=== PATIENT | female | born 1945 | race Caucasian/White ===

== ENCOUNTER → 2016-11-28 | Outpatient (CLI) | payer OTHER ==
[~2016-11-28] MED LIST: ERGO1CAP35 PO; HYDC25 PO; MELO15TA3 PO; METO1TAB69 PO; METO50TA7 PO; MULT-506 PO; OMEG10007 PO; OTC STOOL SOFTENER PO; POTA10CA28 PO; PRCSR90 PO; PSYL55.43 PO; ZNTT/150 PO
--- NOTE | 2016-11-28 11:54 | DIAGNOSTIC IMAGING REPORT ---
MRCP HISTORY: Dilated common bile duct. ABNORMAL FINDINGS ON GI TRACT TECHNIQUE: MRCP of the abdomen was performed according to standard departmental protocol without the use of intravenous contrast. COMPARISON STUDY: Abdominal ultrasound 10/14/2016. FINDINGS: There are least 3 cysts within the liver with the largest at the right hepatic dome measuring 12 cm. These remain unchanged. The kidneys, adrenal glands, and spleen are unremarkable. There is a 5 mm cyst at the pancreatic tail. No retroperitoneal lymphadenopathy. The gallbladder surgically absent. The common bile duct is normal in caliber measuring up to 5 mm. There is a distended common hepatic duct and cystic duct. These measure 15 mm and 9 mm, respectively. There is also left greater the right mild to moderate intrahepatic bile duct dilatation. No filling defects within the common bile duct. There is a pancreas divisum. The main pancreatic duct is mildly distended up to 4 mm. IMPRESSION: 1. Normal caliber common bile duct measuring 5 mm. 2. Distended common hepatic duct and cystic duct status post cholecystectomy. There is also mild to moderate intrahepatic bile duct dilatation, left greater than right. There are no filling defects within the common bile duct or common hepatic duct. Therefore, these may represent postoperative changes. 3. Pancreas divisum. The main pancreatic duct is mildly distended up to 4 mm. 4. A 5 mm cyst at the pancreatic tail. 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 5. Hepatic cysts. Electronically signed by: Tomy Musa M.D. 11/28/2016 11:52 AM Dictated Date/Time: 11/28/2016 11:39 AM
== END | disposition home or self-care (01) ==
LOC: C.MRI 10:35
PROVIDERS: ATTEND Internal Medicine Gastroenterology
DX: R93.3 Abnormal findings on diagnostic imaging of other parts of digestive tract (principal); K86.2 Cyst of pancreas; K76.89 Other specified diseases of liver

== ENCOUNTER → 2017-08-28 | Outpatient (CLI) | payer OTHER | END | disposition home or self-care (01) | LOC: C.MAMM 15:34 | PROVIDERS: ATTEND Family Medicine | DX: M85.851 Other specified disorders of bone density and structure, right thigh (principal); M85.852 Other specified disorders of bone density and structure, left thigh ==

== ENCOUNTER → 2018-06-29 | Outpatient (CLI) | payer OTHER ==
[~2018-06-29] MED LIST changes: +METO100T44 PO; -METO1TAB69 PO; -METO50TA7 PO; +METO50TA8 PO; +RANI150T85 PO; -ZNTT/150 PO
--- NOTE | 2018-06-29 16:01 | DIAGNOSTIC IMAGING REPORT ---
MRCP CLINICAL HISTORY: Right upper quadrant abdominal pain. COMPARISON STUDY: MRCP November 28, 2016 and right upper quadrant ultrasound May 06, 2018. TECHNIQUE: Utilizing a 1.5 Hannah magnet and dedicated coil, multiplanar, multiecho imaging of the upper abdomen was performed without intravenous contrast. FINDINGS: Several hepatic cysts are noted. The dominant right hepatic lobe cyst has increased in size since exam of November 28, 2016. This cyst now measures 14.6 x 10.9 x 10.4 cm. It previously measured 12.1 x 9.4 x 8.7 cm. A few small hepatic cysts are noted. There is trace perihepatic fluid. Caliber of the common bile duct is normal. Dilatation of the common hepatic duct and the cystic duct is unchanged since MRCP of April 28, 2017. Common hepatic duct measures 1.5 cm. Cystic duct measures 0.9 cm. There is no filling defect to suggest choledocholithiasis. Mild intrahepatic biliary ductal dilatation is also unchanged. Pancreas divisum is noted. Mild dilatation of the main pancreatic duct is unchanged. No peripancreatic infiltration or fluid. A 6 mm cystic lesion within the pancreatic tail is unchanged. This likely reflects a small side branch IPMN. Unenhanced images of the spleen and adrenal glands are normal. There is no abdominal lymphadenopathy. A moderate-sized hilar hernia is noted. IMPRESSION: 1. Increase in size of a dominant right hepatic lobe cyst which now measures 14.6 x 10.9 x 10.4 cm. Trace perihepatic fluid. 2. No change in biliary ductal dilatation since MRCP of November 28, 2016. This is likely related to previous cholecystectomy. No choledocholithiasis. 3. Pancreas divisum. No change in mild pancreatic ductal dilatation. 4. Moderate sized hiatal hernia. Electronically signed by: Kashmir De Luna M.D. 06/29/2018 3:59 PM Dictated Date/Time: 06/29/2018 3:48 PM
== END | disposition home or self-care (01) ==
LOC: C.MRI 14:47
PROVIDERS: ATTEND Internal Medicine Gastroenterology
DX: R10.11 Right upper quadrant pain (principal)

== ENCOUNTER 2021-09-27 05:25 | Observation (INO) ==
--- NOTE | 2021-07-25 16:51 | History & Physical Report ---
Date of Service July 25, 2021 Assessment & Plan (1) Left knee DJD: Plan: Postoperative prescriptions for Percocet and Coumadin will be provided at discharge from the hospital. Anticipate discharge to home with home health services. She already has access to a walker and cane. She has an appointment to see her PCP early next week for medical clearance. Informed written consent will be obtained on the morning of surgery. The patient is aware of the COVID-1 9 risks associated with surgery. She is currently asymptomatic of any COVID-19 symptoms. COVID-19 nasal swab testing was ordered for the Friday prior to surgery. PDMP was checked and there are no concerning findings. She has an appointment with PAT on July 26. Preoperative lab work, EKG, and chest x- ray have been ordered. History of Present Illness Chief Complaint: Left knee pain Primary Care Provider: Gabrielle Guerrero DO This 76-year-old female presents for her preoperative history and physical. She is scheduled to undergo a left knee total knee arthroplasty on 08/01/2021. The patient has had a longstanding history of left knee pain. It has been ongoing for years. It has become worse over the last 2 years. She states she intended to have her knee replaced 2 years ago, but postponed it due to the pandemic. She is now ready to proceed. She has pain with activities of daily living. There is pain with weightbearing. She does have occasional night pain. She denies any effusions. She has an overall thickening of the knee as well as valgus deformity. She has tried conservative care measures for the last several years without lasting improvement. No true numbness. She does have some baseline altered sensation due to back issues. She has chronic weakness in the left lower limb along with diminished ankle reflexes since 1976. Preoperative imaging has been obtained. She elects to proceed with surgical intervention in hopes of improving her pain control and alignment. Allergies Allergy/AdvReac Type Severity Reaction Status Date / Time lisinopril Allergy Intermediate Cough Verified 07/25/21 07:34 codeine Allergy Mild Gastrointestinal Verified 07/25/21 07:34 Upset Penicillins AdvReac Intermediate Hives Verified 07/25/21 07:34 Home Medications Medication Instructions Recorded Confirmed Type aspirin 81 mg tablet 81 mg PO HS tab 05/29/20 07/25/21 History cholecalciferol (vitamin D3) 25 1,000 unit PO QAM 05/29/20 07/25/21 History mcg (1,000 unit) tablet cyanocobalamin (vitamin B-12) 500 500 mcg PO QAM 05/29/20 07/25/21 History mcg tablet melatonin 10 mg tablet,extended 10 mg PO HS tab 05/29/20 07/25/21 History release,multiphase metoprolol succinate 100 mg 100 mg PO HS tab 05/29/20 07/25/21 History tablet,extended release 24 hr metoprolol succinate 50 mg 50 mg PO QAM tab 05/29/20 07/25/21 History tablet,extended release 24 hr nifedipine 90 mg tablet,extended 90 mg PO HS tab 05/29/20 07/25/21 History release omeprazole 40 mg capsule,delayed 40 mg PO HS cap 05/29/20 07/25/21 History release potassium chloride 10 mEq 10 meq PO BID tab 05/29/20 07/25/21 History tablet,extended release chlorthalidone 25 mg tablet 25 mg PO QAM 05/31/20 07/25/21 History docusate sodium 100 mg tablet 200 mg PO HS tab 05/31/20 07/25/21 History (Stool Softener) acetaminophen 500 mg tablet 1,000 mg PO HS 11/03/20 07/25/21 History meloxicam 7.5 mg tablet 7.5 mg PO DAILY PRN 11/03/20 07/25/21 History olmesartan 5 mg tablet 5 mg PO HS 11/28/20 07/25/21 History memantine 10 mg tablet 10 mg PO BID #180 tab 05/02/21 07/25/21 Rx Past Med/Surg History Medical History (Updated 07/25/21 @ 16:50 by Deo Morales PA-C) GERD (gastroesophageal reflux disease) History of esophageal dilatation History of migraine Hypertension Mild cognitive impairment Obesity Osteoarthritis Overactive bladder Renal cyst, acquired BEING MONITORED BY PCP Katie's ring Vascular dementia FOLLOWS WITH DR. DEVINE Surgical History H/O dilation and curettage History of back surgery per pt "removed part of the lumbar fusion" History of cataract surgery RT/LEFT History of colonoscopy History of esophagogastroduodenoscopy (EGD) History of hysterectomy History of lumbar fusion History of right inguinal hernia repair History of tooth extraction History of total left hip replacement History of total right knee replacement (TKR) Nausea and vomiting after administration of anesthetic agent S/P cholecystectomy S/P tonsillectomy and adenoidectomy Status post Mohs surgery for basal cell carcinoma ON SCALP Status post tubal ligation Family History (Updated 07/25/21 @ 16:46 by Deo Morales PA-C) Mother Hypertension Sister Pancreatic cancer Hypertension Father Lung cancer Other Melanoma No family history of adverse response to anesthesia Social History (Updated 07/25/21 @ 16:45 by Deo Morales PA-C) Smoking Status: Never smoker Second Hand Exposure: Yes ( A CHILD); Hx Alcohol Use: Yes (formerly) Alcohol type: hard liquor Preferred Language: Albanian Communication Ability: Effective World Language Teacher Required: No Beliefs That Will Affect Care: None marital status: Current Living Situation: Spouse current occupational status: retired Feels Safe at Home: Yes Assistive Devices: Cane and Glasses Review of Systems Review of Systems: All systems reviewed & are unremarkable except as noted in HPI & below A total of 10 systems were reviewed. Physical Exam Physical Exam: Vitals: Height 157 cm, weight 79 kilograms, BMI 32.0, temperature 36.5, BP 110/60, pulse 67, and O2 sat 96% on room air. General: Well-developed, well-nourished, elderly white female in no acute distress. Sitting in a chair. Alert and oriented. Skin: Warm and dry with good turgor. No rashes or lesions. No intraarticular effusion. She does have some venous stasis changes on her lower extremities. She also has varicosities present in both lower legs. HEENT: Normocephalic, atraumatic. Eyes: PERRLA, EOMI. Nares and oropharynx exams deferred due to COVID precautions. Heart: RRR, no MGR. Lungs: Clear to auscultation bilaterally. No crackles, rhonchi or wheezing. Good air movement. Abdomen: Mildly obese. Bowel sounds present x4. Soft, nontender. No organomegaly. No masses. Musculoskeletal: Left knee evaluation reveals an obvious valgus deformity. There is some thickening about the knee, but no intraarticular effusion. No redness or warmth. She lacks a few degrees of terminal extension. Flexion to about 110 degrees. Strength is 5/5 with fair quad tone. Stable collateral ligaments. Some slight pseudolaxity of the LCL. No defect in the patellar tendon or quadriceps tendon. She has focal discomfort with palpation over the lateral joint line. There is also some medial joint line discomfort with palpation today, though it is minor compared to the lateral compartment. There is crepitus palpable with motion. Ambulating today with an antalgic gait. Neurologic: Gross sensation is intact across the left leg by soft touch. Peripheral pulses are 2+. She is noted to have a decreased Achilles reflex on the left. Results & Data Results & Data ([facility]) Diagnostic Findings Radiographic imaging previously obtained shows end-stage DJD with valgus deformity of the left knee. Periarticular osteophytes, subchondral sclerosis, and joint space narrowing are all present. Code Status & VTE Plan VTE Prophylaxis Plan VTE Prophylaxis will be ordered: Yes
--- NOTE | 2021-07-26 10:16 | PAT Medication Instructions ---
Medication Instructions Date of Service July 26, 2021 Home Medications Medication Instructions Recorded memantine 10 mg tablet 10 mg PO BID #180 tab 05/02/21 aspirin 81 mg tablet 81 mg PO HS cholecalciferol (vitamin D3) 25 mcg (1,000 unit) tablet 1,000 unit PO QAM cyanocobalamin (vitamin B-12) 500 mcg tablet 500 mcg PO QAM melatonin 10 mg tablet,extended release,multiphase 10 mg PO HS metoprolol succinate 100 mg tablet,extended release 24 hr 100 mg PO HS metoprolol succinate 50 mg tablet,extended release 24 hr 50 mg PO QAM nifedipine 90 mg tablet,extended release 90 mg PO HS omeprazole 40 mg capsule,delayed release 40 mg PO HS potassium chloride 10 mEq tablet,extended release 10 meq PO BID chlorthalidone 25 mg tablet 25 mg PO QAM docusate sodium 100 mg tablet (Stool Softener) 200 mg PO HS acetaminophen 500 mg tablet 1,000 mg PO HS meloxicam 7.5 mg tablet 7.5 mg PO DAILY PRN olmesartan 5 mg tablet 5 mg PO HS memantine 10 mg tablet 10 mg PO BID ASK your surgeon for instructions meloxicam 7.5 mg tablet 7.5 mg PO DAILY PRN DO NOT take the morning of surgery cholecalciferol (vitamin D3) 25 mcg (1,000 unit) tablet 1,000 unit PO QAM cyanocobalamin (vitamin B-12) 500 mcg tablet 500 mcg PO QAM potassium chloride 10 mEq tablet,extended release 10 meq PO BID chlorthalidone 25 mg tablet 25 mg PO QAM Take morning of surgery With a small sip of water, OTHERWISE NOTHING TO EAT OR DRINK AFTER MIDNIGHT: metoprolol succinate 50 mg tablet,extended release 24 hr 50 mg PO QAM memantine 10 mg tablet 10 mg PO BID Take evening before surgery aspirin 81 mg tablet 81 mg PO HS (continue as normal unless told otherwise by surgeon) melatonin 10 mg tablet,extended release,multiphase 10 mg PO HS metoprolol succinate 100 mg tablet,extended release 24 hr 100 mg PO HS nifedipine 90 mg tablet,extended release 90 mg PO HS omeprazole 40 mg capsule,delayed release 40 mg PO HS potassium chloride 10 mEq tablet,extended release 10 meq PO BID docusate sodium 100 mg tablet (Stool Softener) 200 mg PO HS acetaminophen 500 mg tablet 1,000 mg PO HS olmesartan 5 mg tablet 5 mg PO HS memantine 10 mg tablet 10 mg PO BID Other Notes If you have any questions please call us at [phone] or [phone] or [phone] or [phone]
--- NOTE | 2021-07-26 10:43 | Anesthesiology Consultation ---
Date of Service July 26, 2021 Assessment & Plan (1) Encounter for pre-operative examination: - COVID screening: Per assessment on 07/26: Travel screen negative, no known COVID-19 positive contacts or current COVID-19 related symptoms. Patient vacci nated. Surgeon arranging preop COVID testing. Awaiting results. - Neurology office visit (05/02/21): "Patient has mild cognitive impairment. She is functioning very well and I see no evidence for significant dementia (such as a senile dementia of the Alzheimer's type). Given her chronic cerebral ischemia, I suspect she has a mild vascular dementia, which is stable. Memantine can help and she tolerates this." F/U as needed recommended. - PCP office visit (07/24/21): "Risk calc 2.4% for any complications.. lower than average.. benefit > risk.. proceed with TLK-- however need pre-op blood work and EKG before final decision done" > Preop labs, EKG and CXR done 07/26/21 and unremarkable. Results to be forwarded to PCP. Chart Review Chart Review: Acceptable Risk for Surgery (pending final PCP clearance) and Patient seen in Pre Admission Testing Teaching & Discussion Pre-Anesthesia Teaching/Discussion Notes: Instructed NPO after midnight before surgery,except medications with 15 cc of water. Medication instructions provided according to the PAT guidelines. History Surgery Operation Date: 08/01/21 08:50 Proposed Procedures p Left Total Knee Arthroplasty - Jb Patel MD Height/Weight Height: 5 ft 2 in Weight: 79.8 kg Allergies Allergy/AdvReac Type Severity Reaction Status Date / Time lisinopril Allergy Intermediate Cough Verified 07/25/21 07:34 codeine Allergy Mild Gastrointestinal Verified 07/25/21 07:34 Upset Penicillins AdvReac Intermediate Hives Verified 07/25/21 07:34 Medications Home Medications Medication Instructions Recorded Confirmed Last Taken aspirin 81 mg tablet 81 mg PO HS tab 05/29/20 07/25/21 11/27/20 cholecalciferol (vitamin D3) 25 1,000 unit PO QAM 05/29/20 07/25/21 11/27/20 mcg (1,000 unit) tablet cyanocobalamin (vitamin B-12) 500 500 mcg PO QAM 05/29/20 07/25/21 11/27/20 mcg tablet melatonin 10 mg tablet,extended 10 mg PO HS tab 05/29/20 07/25/21 11/27/20 release,multiphase metoprolol succinate 100 mg 100 mg PO HS tab 05/29/20 07/25/21 11/27/20 tablet,extended release 24 hr metoprolol succinate 50 mg 50 mg PO QAM tab 05/29/20 07/25/21 12/12/20 06:30 tablet,extended release 24 hr nifedipine 90 mg tablet,extended 90 mg PO HS tab 05/29/20 07/25/21 11/27/20 release omeprazole 40 mg capsule,delayed 40 mg PO HS cap 05/29/20 07/25/21 11/27/20 release potassium chloride 10 mEq 10 meq PO BID tab 05/29/20 07/25/21 11/27/20 tablet,extended release chlorthalidone 25 mg tablet 25 mg PO QAM 05/31/20 07/25/21 11/27/20 docusate sodium 100 mg tablet 200 mg PO HS tab 05/31/20 07/25/21 11/27/20 (Stool Softener) acetaminophen 500 mg tablet 1,000 mg PO HS 11/03/20 07/25/21 11/27/20 meloxicam 7.5 mg tablet 7.5 mg PO DAILY PRN 11/03/20 07/25/21 Unknown olmesartan 5 mg tablet 5 mg PO HS 11/28/20 07/25/21 11/27/20 memantine 10 mg tablet 10 mg PO BID #180 tab 05/02/21 07/25/21 Unknown Past Medical History Medical History Chronic cerebral ischemia GERD (gastroesophageal reflux disease) controlled History of blood transfusion post-op x2 History of migraine Hypertension Mild cognitive impairment Obesity Osteoarthritis Overactive bladder Renal cyst, acquired Under surveillance by PCP Katie's ring Vascular dementia Follows with neurology (Dr. Beasley) Exercise / Class Metabolic Activity II 4-5 Yardwork/Stairs/Walk up hill Past Family History Family History Mother Hypertension Sister Pancreatic cancer Hypertension Father Lung cancer Other Melanoma No family history of adverse response to anesthesia Past Surgical History Surgical History H/O dilation and curettage History of back surgery Lumbar fusion revision History of cataract surgery R/L History of colonoscopy History of esophageal dilatation History of esophagogastroduodenoscopy (EGD) History of hysterectomy History of lumbar fusion History of right inguinal hernia repair History of tooth extraction History of total left hip replacement History of total right knee replacement (TKR) S/P cholecystectomy S/P tonsillectomy and adenoidectomy Status post Mohs surgery for basal cell carcinoma Scalp Status post tubal ligation Past Anesthesia History No Family Hx of Anesthesia Complications and Other Hx of ~L4-S1 fusion. Patient reports that difficulty with spinal placement for remote either ONDINA or TKA. She states spinal was eventually successful and surgery/anesthesia otherwise unremarkable. History of PONV No Hx of Motion Sickness and History of PONV Social History Smoking Status: Never smoker Do You Dip or Chew Tobacco: No Hx Alcohol Use: Yes (formerly) Alcohol type: hard liquor alcohol intake frequency: 0-2 drinks per day (Typically one drink/day) Hx Substance Use: No substance use type: does not use Review of Systems Patient denies chest pain, shortness of breath, dyspnea on exertion, fever, chills, cough, wheezing, palpitations. Physical Exam Vital Signs VITALS BP 120/74 P 61 TEMP 98.4 SP02 94%RA RESP 16 PHYSICAL Full cervical extension range of motion. Full TMJ range of motion. TMD 3 finger breaths Mallampati Score 3 Dentition: intact, crowns/bridges (upper front crowns) Lungs: clear throughout to auscultation Cardiac: regular rate and rhythm, no murmurs noted Spine: normal Carotid arteries: negative bruit Extremities: no edema Lab Results Anesthesia Preop Results Results Anesthesia Widget: WBC 5.09 K/uL (4.8-10.8) 07/26/21 Hgb 13.0 g/dL (12.0-16.0) 07/26/21 Hct 38.9 % (37-47) 07/26/21 Plt 253 K/uL (130-400) 07/26/21 Na 137 mmol/L (136-145) 07/26/21 K 3.5 mmol/L (3.5-5.1) 07/26/21 Cl 103 mmol/L (98-107) 07/26/21 CO2 28 mmol/L (21-32) 07/26/21 BUN 11 mg/dl (7-18) 07/26/21 Creat 0.98 mg/dl (0.6-1.2) 07/26/21 Glucose Level 94 mg/dl (70-99) 07/26/21 PT 9.9 Seconds (9.0-12.0) 07/26/21 PTT 26.0 Seconds (21.0-31.0) 07/26/21 INR 1.0 (0.9-1.1) 07/26/21 Urine Color Yellow 07/26/21 Urine Appearance Clear (Clear) 07/26/21 Urine pH 8.0 (4.5-7.5) H 07/26/21 Urine Specific [place] 1.013 (1.000-1.030) 07/26/21 Urine Protein Negative (Negative) 07/26/21 Urine Glucose (UA) Negative (Negative) 07/26/21 Urine Ketones Negative (Negative) 07/26/21 Urine Blood Negative (Negative) 07/26/21 Urine Nitrite Negative (Negative) 07/26/21 Urine Bilirubin Negative (Negative) 07/26/21 Urine Urobilinogen Negative (Negative) 07/26/21 Urine Leukocyte Esterase Negative (Negative) 07/26/21 Blood Type O Positive 07/26/21 Antibody Screen NEGATIVE 07/26/21 Testing Electrocardiogram Date: 07/26/21 NSR at 62bpm. Moderate voltage criteria for LVH, may be normal variant. TWI isolated in lead III. Flattened/NS TWA in AVF. Chest X-Ray Date: 07/26/21 FINDINGS: The cardiac silhouette is top normal in size. There is a mildly tortuous thoracic aorta. Bilateral hilar prominence likely due to the normal pulmonary vessels. Lobular retrocardiac density favors a small hiatus hernia. [id number] degenerative changes within the thoracic and lumbar spine. There is slight elevation of the right hemidiaphragm with a few right basilar linear densities consistent with subsegmental atelectasis. No focal lung consolidations to suggest pneumonia. Prior cholecystectomy. IMPRESSION: No acute process. Small hiatus hernia. Slight elevation of the right hemidiaphragm.
--- NOTE | 2021-09-03 16:25 | History & Physical Report ---
Date of Service September 03, 2021 Assessment & Plan (1) Left knee DJD: Plan: PRE-OP Diagnosis: Left knee osteoarthritis Planned Procedure: Left total knee arthroplasty Plan: Patient is scheduled to undergo this procedure at the [facility] with an observation admission on September 27, [address] Grey Be. Risks and complications of the procedure such as: Infection, bleeding, pain, scarring, nerve blood vessel damage, weakness, wound problems, stiffness, incomplete relief of symptoms, hardware failure, hardware loosening, wear, fracture, tendon or ligament injury, blood clots, embolism, heart attack stroke and were explained to the patient at her visit today and informed consent form the procedure was obtained. Patient also understands risks of proceeding with surgical intervention during the COVID-19 pandemic. Currently she is asymptomatic and understands that she will need to be tested prior to surgery. Patient will also need to obtain a CBC with differential, complete metabolic panel, PT/INR, blood type and screen, urinalysis, urine culture and sensitivity, hemoglobin A1c and a nasal culture for MRSA. Her preoperative medical clearance from Dr. Guerrero is up-to-date, as is her EKG and chest x-ray. During today's visit we reviewed the total knee packet, discussed use of antibiotics prior to dental procedures after joint replacement surgery, we talked about discharge planning from the hospital and in-home PT for the first 2 weeks postoperatively. I advised the patient she will be discharged from the hospital on for some pain medication and will most likely have her use a baby aspirin twice daily for blood clot prevention. Patient is scheduled to see me for 2-week postoperative follow-up on October 09 at 2:30 PM. At that visit we will implement formal physical therapy in an outpatient setting and provide her with her rehab protocol. Patient verbalized understanding of all information provided during today's visit. She thanks for the care that she received. Patient states she has questions or concerns should arise prior to her surgery, she will contact clinic. History of Present Illness Chief Complaint: Chief Complaint: Left knee pain Primary Care Provider: Gabrielle Guerrero DO History of Present Illness (including history relevant to procedure): This 76-year-old female presents the clinic today for preoperative history and physical. Patient was initially scheduled for total knee replacement on September 06 however her surgery has been rescheduled due to the high census of Covid patients requiring hospitalization. She has seen Dr. Patel in the past and actually was on the surgery schedule to have her knee replaced with him, but has been counseled twice due to lack of inpatient beds at our hospital from the coronavirus pandemic. She has been trying to get this rescheduled and can get on my schedule faster than she could with Dr. Patel, which is why she is here today. Patient reports she was actually told that she could get her knee replaced 15 years ago when she had the right knee replacement done. It has been really bothering her the last 2 years. She is having trouble getting in and out of cars, putting any weight down on it. She does have a history of a spine surgery with some residual left lower leg numbness and loss of her Achilles reflex. However, denies any numbness on the dorsum of her foot. Review Of Systems: A 12 point review systems performed is unremarkable except for those things stated in the HPI and past medical history. Past Medical History: Problems: Xerosis cutis Changing skin lesion Sun-damaged skin Family history of melanoma History of actinic keratoses Medication management Hypertension History of left hip replacement Lesion of pancreas Actinic keratoses Liver cyst Schatzki's ring Dysphagia Pancreas cyst RUQ pain Left knee DJD Hypokalemia Osteopenia Milia Seborrheic keratoses Abdominal cramping, bilateral lower quadrant Dilated bile duct SHAR positive Polyarthralgia Microscopic colitis Adenomatous colon polyp Diarrhea Weakness Lower extremity weakness History of lumbar fusion Weight disorder Multiple pigmented nevi Inflamed seborrheic keratosis Chronic hypokalemia Prophylactic administration of vaccine against other diseases Schatzki's ring ANXIETY LICHEN PLANUS ACTINIC KERATOSIS Urinary tract infection, recurrent Greater trochanteric bursitis Dysplastic nevus HTN (hypertension) Visit for preventive health examination Family history of skin cancer Procedure History Procedure Procedure Date Comments left ONDINA right TKA gallbladder hysterectomy back fusion with repair bilateral knee arthroscopies Hernia repair Mohs surgery 07/02/2021 Shave biopsy and cauterization of skin 06/12/2021 Cataract 11/28/2020 - R cararact replacement Eye examination 11/07/2020 - Bilateral Cataracts. Would like to proceed with cararact surgery. Right eye will be first on November 28, 2020. Left eye likely to follow a couple of weeks later. Upper GI endoscopy 11/06/2020 - Regular Z-line 35 cm from incisors. Moderate Schatzki's ring which was dilated. Normal examined duodenum. No specimens collected. - gastric polypsmedium sized haiatal hernia MRCP - Magnetic resonance cholangiopancreatography 07/09/2019 - Report reviewed. Additional findings body of report. common hepatic duct 9 mm no change vs 06/2018, ,, CBD smooth tapering no change, Stable 6 mm pancreas lesion, mod HH, mild PD dilatation 4 mm no change. - 1) Overall, no signifcant change compared to the prior study. 2) Hepatic cysts are again noted. Dominant right hepatic lobe cyst measures 13 x 11 x 10 cm.3) No change in the biliary ductal dilatation which is likely related to the patient's postcholecystectomy state. 4) Pancreas divisum. Mammogram 06/10/2019 - No mammographic evidence of malignancy, 1 year screening recommended. MRCP - Magnetic resonance cholangiopancreatography 06/29/2018 - 1) Increase in size of a dominant right hepatic lobe cyst which now measures 14.6 x 10.9 x 10.4 cm. Trace perihepatic fluid. 2) No change in biliary ductal dilitation since MRCP in 11/28/16. This is likely related to previous cholecystectomy. No choledocholitihiasis. 3) Pancreas divisum. No change in mild pancreatic ductal dilatation. 4) Moderate sized hiatal hernia. Ultrasound finding 05/26/2018 - RUQ u/s several hepatic cysts largest 12.7 cm, CBD 13 mm no change from MRCP 11/2016 and u/s 09/2016, s/p mauricio, DEXA - Dual energy X-ray photon absorptiometry 08/28/2017 MRCP - Magnetic resonance cholangiopancreatography 11/28/2016 - Normal caliber common bile duct measuring 5mmDistended common hepatic duct and cystic duct status post cholecytectomy. There is also mild to moderate intrahepatic bile duct dilatation, left greater than right. There are no filling defects within the common bile duct or common hepatic duct. Therefore, these may represent postoperative changes.Pancreas divisum. The main pancreatic duct is mildly distended up to 4mmA 5mm cyst at the pancreatic tail. 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 Ultrasound 10/14/2016 - 1) Prior cholecytectomy. Distended common bile duct measuring upt to 1.3 cm2) Multiple hepatic cysts. Colonoscopy 09/10/2016 - COLO to TI, 7 mm polyp at 90 cm removed tubular adenoma, TI normal and ranom path mild inflammation, random right and left colon path moderate inflammation, congestion at 30 cm moderate inflammation - moderate inflammation; appt with Dr Garland 10/03/16. repeat colon in 5 years - await path Colonoscopy abnormal 09/10/2016 - repeat in 5 years Evaluation of test results 08/28/2016 - Giardia negative Ultrasound, retroperitoneal (eg, renal, aorta, nodes), real time with image documentation; complete 06/04/2016 - 7mm upper pole right renal cyst. Otherwise negative renal ultrasound Spine X-ray 05/07/2016 - 1. There is no acute bony abnormality identified involving the lumbosacral spine.2. Osteopenia with lubosacral spondylosis and scoliosis as above. Mammogram 04/18/2015 DEXA - Dual energy X-ray photon absorptiometry 09/15/2014 Esophagogastroduodenoscopy 09/09/2012 - EGD gastric polyps, HH, mild schatzki's ring dilated; Shave biopsy of skin 01/31/2012 Allergies and Sensitivities: lisinopril(cough) codeine(Vomiting) PCN (penicillin)(hives) PCN (penicillin)(rash) Social history: Patient states she consumes 1 alcoholic beverage per day. She denies tobacco or illicit drug use Family history:Heart attack: Unknown High Blood Pressure: Mother, Unknown Lung cancer..: Father Skin cancer: Unknown Stroke: Mother, Unknown Current Home Meds: (Last Updated 09/03 15:28) NIFEdipine (NIFEdipine 90 mg oral tablet, extended release) TAKE 1 TABLET BY MOUTH ONCE DAILY acetaminophen (Tylenol) aspirin (aspirin 81 mg oral tablet) 81 mg PO Daily chlorthalidone (chlorthalidone 25 mg oral tablet) 25 mg PO Daily cholecalciferol (Vitamin D3 1000 intl units oral tablet) 1,000 Int_Unit PO Daily cyanocobalamin (Vitamin B12 500 mcg oral tablet) 500 mcg PO Daily melatonin (melatonin 5 mg sublingual tablet) 10 mg SL qhs meloxicam (meloxicam 7.5 mg oral tablet) TAKE 1 TO 2 TABLETS BY MOUTH ONCE DAILY NEEDED memantine (memantine 10 mg oral tablet) 10 mg PO bid metoprolol (Metoprolol Succinate ER 100 mg oral tablet, extended release) TAKE 1 & 1/2 (ONE & ONE-HALF) TABLETS BY MOUTH ONCE DAILY olmesartan (Benicar 5 mg oral tablet) 5 mg PO Daily omeprazole (omeprazole 40 mg oral delayed release capsule) Take 1 capsule by mouth once daily potassium chloride (Potassium Chloride (Eqv-K-Tab) 10 mEq oral tablet, extended release) Take 1 tablet by mouth twice daily unlisted medication (Stool Softener) 200 mg No Vital Signs Data Available Initial Wt: No Data Available Studies (relevant to the procedure): X-rays: standing long-leg alignment film done today demonstrates patient to be in pathologic valgus alignment with the weightbearing axis passing lateral to the lateral tibial plateau. She has end- stage osteoarthritis, [id number] in the lateral compartment. Allergies Allergy/AdvReac Type Severity Reaction Status Date / Time Penicillins Allergy Intermediate Hives Verified 07/31/21 13:25 lisinopril AdvReac Intermediate Cough Verified 07/31/21 13:25 codeine AdvReac Mild Gastrointestinal Verified 07/31/21 13:25 Upset Home Medications Medication Instructions Recorded Confirmed Type aspirin 81 mg tablet 81 mg PO HS tab 05/29/20 07/25/21 History cholecalciferol (vitamin D3) 25 1,000 unit PO QAM 05/29/20 07/25/21 History mcg (1,000 unit) tablet cyanocobalamin (vitamin B-12) 500 500 mcg PO QAM 05/29/20 07/25/21 History mcg tablet melatonin 10 mg tablet,extended 10 mg PO HS tab 05/29/20 07/25/21 History release,multiphase metoprolol succinate 100 mg 100 mg PO HS tab 05/29/20 07/25/21 History tablet,extended release 24 hr metoprolol succinate 50 mg 50 mg PO QAM tab 05/29/20 07/25/21 History tablet,extended release 24 hr nifedipine 90 mg tablet,extended 90 mg PO HS tab 05/29/20 07/25/21 History release omeprazole 40 mg capsule,delayed 40 mg PO HS cap 05/29/20 07/25/21 History release potassium chloride 10 mEq 10 meq PO BID tab 05/29/20 07/25/21 History tablet,extended release chlorthalidone 25 mg tablet 25 mg PO QAM 05/31/20 07/25/21 History docusate sodium 100 mg tablet 200 mg PO HS tab 05/31/20 07/25/21 History (Stool Softener) acetaminophen 500 mg tablet 1,000 mg PO HS 11/03/20 07/25/21 History meloxicam 7.5 mg tablet 7.5 mg PO DAILY PRN 11/03/20 07/25/21 History olmesartan 5 mg tablet 5 mg PO HS 11/28/20 07/25/21 History memantine 10 mg tablet 10 mg PO BID #180 tab 05/02/21 07/25/21 Rx Past Med/Surg History Medical History Chronic cerebral ischemia GERD (gastroesophageal reflux disease) controlled History of blood transfusion post-op x2 History of migraine Hypertension Mild cognitive impairment Obesity Osteoarthritis Overactive bladder Renal cyst, acquired Under surveillance by PCP Dayanna zavala Vascular dementia Follows with neurology (Dr. Beasley) Surgical History H/O dilation and curettage History of back surgery Lumbar fusion revision History of cataract surgery R/L History of colonoscopy History of esophageal dilatation History of esophagogastroduodenoscopy (EGD) History of hysterectomy History of lumbar fusion History of right inguinal hernia repair History of tooth extraction History of total left hip replacement History of total right knee replacement (TKR) S/P cholecystectomy S/P tonsillectomy and adenoidectomy Status post Mohs surgery for basal cell carcinoma Scalp Status post tubal ligation Family History Mother Hypertension Sister Pancreatic cancer Hypertension Father Lung cancer Other Melanoma No family history of adverse response to anesthesia Social History Smoking Status: Never smoker Second Hand Exposure: Yes ( A CHILD); Hx Alcohol Use: Yes (formerly) Alcohol type: hard liquor Hx Substance Use: No Preferred Language: Swedish Communication Ability: Effective Ceramic Restorer Required: No Beliefs That Will Affect Care: None marital status: Current Living Situation: Spouse current occupational status: retired Feels Safe at Home: Yes Assistive Devices: Cane and Glasses Review of Systems All systems reviewed & are unremarkable except as noted in Subjective Physical Exam Physical Exam: Physical Exam: (relevant to the procedure, including heart and lung evaluation) General: Alert and oriented x3 with proper grooming and hygiene Eyes: Pupils are equal and reactive to light with accommodation. Extraocular movements are intact Throat: Deferred due to COVID-19 precautions Cardiac: Regular rate and rhythm with no murmurs or gallops appreciated Lungs: Clear to auscultation throughout with no wheezing, rales or rhonchi Abdomen: Mildly obese, nondistended, nontender with NABS Extremities: Left knee; range of motion is from 10 degrees of extension to 120 degrees of flexion. Patient has a visible valgus malalignment. There is crepitation with passive range of motion. Her patella is not mobile due to arthritic change within the patellofemoral joint. She has no varus or valgus laxity. Negative AP drawer sign Lyla test. She is neurovascularly intact in left lower extremity. Neuro: Cranial nerves II through XII are intact no motor or sensory deficit Skin: Normal in appearance no open skin areas or discharge Code Status & VTE Plan VTE Prophylaxis Plan VTE Prophylaxis will be ordered: Yes
[~2021-09-27 05:25] MED LIST changes: -ERGO1CAP35 PO; -HYDC25 PO; +LR 500ML BOLUS, THEN 15ML/HR IV SCH; +LR 60ML/HR IV SCH; -MELO15TA3 PO; -METO100T44 PO; -METO50TA8 PO; -MULT-506 PO; -OMEG10007 PO; -OTC STOOL SOFTENER PO; -POTA10CA28 PO; -PRCSR90 PO; -PSYL55.43 PO; -RANI150T85 PO; +ROPIVACAINE 0.5% HCL/PF 150 MG, BUPIVACAINE 0.75% MPF 20 ML, EPINEPHrine 0.15 MG, Ketor... INFIL SCH; +TRANEXAMIC ACID 1,000 MG **IV Pre-op IV SCH; +VANCOMYCIN HCL 1,250 MG in SODIUM CHLORIDE 0.9% 250 ML IV SCH
[2021-09-27] MEDS ORDERED: CeleBREX 200 MG CAP PO SCH (06:00)
[2021-09-27] MEDS ORDERED: ACETAMINOPHEN 500 MG TAB PO SCH (06:00)
[2021-09-27] MEDS ORDERED: CLINDAMYCIN 600 MG/54 ML BAG IV SCH (06:00)
[2021-09-27] MEDS ORDERED: dexAMETHasone 4 MG TAB PO SCH (06:00)
[2021-09-27] MEDS ORDERED: LR 60ML/HR IV SCH (06:00)
[2021-09-27] MEDS ORDERED: Scopolamine 1 MG TDSY TD SCH (06:00)
[2021-09-27] MEDS ORDERED: ROPIVACAINE 0.5% HCL/PF 150 MG, BUPIVACAINE 0.75% MPF 20 ML, EPINEPHrine 0.15 MG, Ketor... INFIL SCH (06:00)
[2021-09-27] MEDS ORDERED: TRANEXAMIC ACID 1,000 MG **IV Intra-op IV SCH (06:00)
[2021-09-27] MEDS ORDERED: FAMOTIDINE 20 MG TAB PO SCH (06:00)
[2021-09-27] MEDS ORDERED: TRANEXAMIC ACID 1,000 MG **IV Pre-op IV SCH (06:00)
[2021-09-27] MEDS ORDERED: traMADol HCL 50 MG TABLET PO SCH (06:00)
[2021-09-27] MEDS ORDERED: LR 500ML BOLUS, THEN 15ML/HR IV SCH (06:00)
[2021-09-27] MEDS ORDERED: BUPIVACAINE 0.5 % 5 MG/1 ML PF 10ML VIAL ONE (06:26)
--- NOTE | 2021-09-27 06:33 | History & Physical Bridge Note ---
Date of Service September 27, 2021 History & Physical Bridge Note I have examined the patient, reviewed the History & Physical and in the interval since the performance of the History & Physical I have noted the following changes of clinical significance: no changes noted
[2021-09-27] MEDS ORDERED: MIDAZOLAM HCL 1 MG/ML 2ML VIAL ONE (06:40)
[2021-09-27] MEDS ORDERED: fentaNYL citrate 100 MCG/2 ML VIAL ONE (06:40)
[2021-09-27] MEDS ORDERED: ATROPINE SULFATE 0.1 MG/ML 10ML SYR IV PRN (06:41)
[2021-09-27] MEDS ORDERED: fentaNYL citrate 100 MCG/2 ML VIAL IV PRN (06:41)
[2021-09-27] MEDS ORDERED: ONDANSETRON INJ 2 MG/ML 2 ML VIAL IV PRN ×2 (06:41→09:24)
[2021-09-27] MEDS ORDERED: ePHEDrine sulfate 50 MG/ML AMP IV PRN (06:41)
[2021-09-27] MEDS ORDERED: ORTHO JOINT ANESTHETIC ONE (06:47)
[2021-09-27] MEDS ORDERED: ePHEDrine sulfate 50 MG/ML SYR ONE (07:47)
[2021-09-27] MEDS ORDERED: LIDOCAINE 2% 2 ML VIAL/AMP(20MG/ML) INFIL ONE (07:47)
[2021-09-27] MEDS ORDERED: PROPOFOL IV EMULSION 10 MG/ML 20 ML VIAL IV ONE ×2 (07:47→08:44)
[2021-09-27] MEDS ORDERED: ALUMINUM/MAGNESIUM SUSP 30 ML UDC PO PRN (09:24)
[2021-09-27] MEDS ORDERED: diphenhydrAMINE 50 MG/ML VIAL IV PRN (09:24)
[2021-09-27] MEDS ORDERED: HYDROmorphone INJ 0.5 MG/0.5 ML SYR IV PRN (09:24)
[2021-09-27] MEDS ORDERED: NALOXONE HCL 0.4 MG/1 ML VIAL/CARP IV PRN (09:24)
[2021-09-27] MEDS ORDERED: MAGNESIUM HYDROXIDE SUSP 30 ML UDC PO PRN (09:24)
[2021-09-27] MEDS ORDERED: METOCLOPRAMIDE HCL INJ 5 MG/ML 2 ML VIAL IV PRN (09:24)
[2021-09-27] MEDS ORDERED: oxyCODONE HCL IR 5 MG TAB (IMMEDIATE RELEASE) PO PRN (09:24)
[2021-09-27] MEDS ORDERED: bisacodyL 10 MG SUPP PR PRN (09:24)
--- NOTE | 2021-09-27 09:24 | Operative Report ---
Post Operative Report Pre & Post Diagnosis Operation Date: 09/27/21 07:00 Pre-Op Diagnosis: Osteoarthritis, Left Knee Post-Op Diagnosis: Osteoarthritis, Left Knee I identified the patient and participated in the time-out.: Yes Procedure Operation Date: 09/27/21 07:00 Actual Procedures p Left Total Knee Arthroplasty(Left) - Grey Be MD Surgeon Grey Be MD Brokerage Clerk Omayra Gallagher PAMary Estimated Blood Loss 100 Findings Consistent with Post-Op Diagnosis Specimens none Description of Procedure I was present during the entire case assisting with positioning, prepping, draping, wound retraction, wound closure, dressing and immobilizer application. NO fellow present. Please see Dr. Be procedure note for specifics of the case. I attest to the content of the Intraoperative Record and any orders documented therein. Any exceptions are noted below.
--- NOTE | 2021-09-27 09:24 | Operative Report ---
Post Operative Report Pre & Post Diagnosis Operation Date: 09/27/21 07:00 Pre-Op Diagnosis: Osteoarthritis, Left Knee Post-Op Diagnosis: Osteoarthritis, Left Knee I identified the patient and participated in the time-out.: Yes Procedure Operation Date: 09/27/21 07:00 Actual Procedures p Left Total Knee Arthroplasty(Left) 22 modifier should be added this case due to the patient's valgus alignment increasing the difficulty of the operation as well as the risk complications.- Grey Be MD Surgeon Grey Be MD Shadowgraph Scale Operator DULCE Gallagher PA-C. No resident or fellow was available to assist. Estimated Blood Loss 100 Findings Consistent with Post-Op Diagnosis Specimens Right knee bone and soft tissue contents Anesthesia Type MAC Spinal Regional Complications none Disposition Disposition: Recovery Room Indications 76-year-old female with left knee arthritis refractory to conservative management. X-rays demonstrate [id number] arthritis with approximately 16 degrees of valgus malalignment of her knee. I had a long discussion with her about the risks and benefits of surgery, alternatives to surgery, and expected outcomes. She understands at the risks are elevated due to her valgus malalignment. Specifically she is at increased risk for peroneal nerve palsy and instability. After reviewing all the risks and benefits she elects to proceed. All questions were answered. Informed consent was signed. Description of Procedure Patient was identified in the preoperative holding where the surgical site, left knee, was marked. Patient was brought back to the operating room, placed on the operating room table, and IV sedation was administered. All bony prominences were padded. Perioperative antibiotics and tranexamic acid were administered. Exam under anesthesia was performed. This demonstrated approximately 15 degrees of valgus malalignment. Range of motion was from 5 degrees up to 130 degrees. Ligamentous exam showed the patient have mild pseudolaxity with varus stress test and some grade 1 laxity of her MCL at 30 degrees. The surgical site was prepped and draped in the normal sterile fashion. Prior to incision a multidisciplinary timeout was called. All in the room were in agreement. We began by exsanguinating the limb with an Esmarch bandage. Tourniquet was inflated to 250 mmHg. A 14 cm long incision was made over the anterior aspect of the knee. I dissected through the subcutaneous tissues to the level of the fascia. Full-thickness flaps were raised above the fascia. A median parapatellar arthrotomy was made. Half the fat pad was excised. A small medial release was performed with Bovie electrocautery on the proximal tibia. Synovitis in the suprapatellar pouch was removed. Joint surfaces were inspected. She had grade 4 changes in the patellofemoral joint as well as the lateral compartment and grade 2 changes in the medial compartment The patella was then everted and held with 2 towel clips. The thickness of the patella was measured at 18 mm. Patellar resection was performed to the minimal extent possible due to the thinness of her patella. Caliper showed the patella thickness now to be 12 mm. A size 35 mm trial was placed and had a great fit. The 3 drill holes were placed then the trial button was placed. The patellar thickness was now 21 mm. Given the amount of arthritis in her patella this was felt to be close to her normal patellar thickness. The patellar trial was then removed, the patella was everted and the knee was flexed up. Osteophytes were removed from the femoral condyles and intercondylar notch. The ACL and PCL were excised. Intramedullary drill guide was drilled into the femur. Distal femoral cutting guide was placed set at 7 degrees of valgus to resect 11 mm off the distal femur. Distal femoral resection was made without difficulty. I elected to take an extra 2 mm given the minimal amount of bone resected from the lateral femoral condyle. The tibia was then exposed. The lateral meniscus was sharply excised. The tibial cutting jig was positioned to resect 10 mm off the less involved medial compartment. The jig was then pinned in position and the tibial cut was made. We then brought the knee into full extension. Lamina spreaders were placed. The medial meniscus was excised. She was a little tight laterally so the popliteus was sharply divided with cautery at the level of the joint line. Her extension space now was rectangular. The extension block was then placed for 10 mm thickness poly. This gave us full extension and excellent stability to varus and valgus. Next the knee was flexed up and the femoral sizing guide was placed. The patient sized to a size 4 femur. The 3 degree external rotation jig was used to create 2 holes in the distal femur. The jig was removed and the holes were compared to Whitesides axis and the epicondylar axis. We were happy with the rotation, and therefore placed a size three 4-in-1 cutting jig and pinned this into position. Our 4 cuts were made. The cutting jig was removed. The 10 mm flexion block was then placed with the knee held at 90 degrees. There was excellent stability to varus and valgus at 90 degrees with no gapping medially or laterally. Next the box cutting jig was placed on the distal femur. The box cut was made and the femoral trial was impacted into position. The tibia was sized to a 3 for a fixed bearing component. The tibial tray was positioned in external rotation on the cut tibial surface and the knee was brought through a full range of motion. We then pinned the tibial tray into position and used the intramedullary drill followed by the keel punch. The trial polyethylene was then placed and the knee was brought through a full range of motion. I was very happy with the stability through a full range of motion, and the patellar tracking was excellent. Next the trial components were removed. I then injected the posterior capsule and periosteum with the periarticular injection cocktail. The bone cuts were then irrigated and dried while the cement was mixed on the back table. The femoral component was cemented on first. Excess cement was removed. A lap sponge was placed over the femoral component for protection, then the tibia was subluxated anteriorly. The tibial component was then cemented in place. Again excess cement was removed. The trial polyethylene was then placed and the knee was brought into full extension and held there until the cement cured. The patella was cemented and clamped. Dilute Betadine solution was then allowed to irrigate the knee while the cement cured. Once the cement was fully cured, the tourniquet was let down and meticulous hemostasis was ensured. The wound was irrigated out with copious amounts normal saline. The knee was brought through a full range of motion and we are very happy with the patella tracking and the stability. However, given the valgus alignment of her knee, I felt it was in her best interest to use a posterior stabilized tibial component for additional stability. Therefore, the trial tibial polyethylene was removed and the real size 3 polyethylene 10 mm thickness, posterior stabilized plus implant was placed. We then began to close. Interrupted 0 Vicryl suture was used to repair the patellar retinaculum in [id number] fashion. The quadriceps and patellar tendons were run with #1 Ethibond. The deep dermal layer was closed with interrupted 2-0 Vicryl. Dermabond and Zipline was used for the skin. A compressive dressing was placed. Patient's sedation was lifted and was transferred to recovery room in stable condition. Summary of implants: Depuy Sigma Posterior Stabilized Cemented Femur, size 4 narrow Size 3 cemented tibial tray for a fixed bearing modular component Posterior stabilized plus tibial component, 10 mm thickness, size 3 Oval dome patella, size 35 2 batches of simplex bone cement Postoperative course: Patient will be admitted to the floor for pain control and monitoring. Weightbearing as tolerated with no knee range of motion for 48 hours. Aspirin for DVT prophylaxis. I attest to the content of the Intraoperative Record and any orders documented therein. Any exceptions are noted below.
[2021-09-27] MEDS ORDERED: MELOXICAM 7.5 MG TAB PO PRN (09:28)
--- NOTE | 2021-09-27 09:53 | XRay Report ---
XR knee LT 1 or 2V routine HISTORY: 76 years-old Female Surgical Post Op left knee total joint arthroplasty COMPARISON: 08/31/2021 TECHNIQUE: 2 views of the left knee FINDINGS: Left knee total joint arthroplasty and patella resurfacing. Satisfactory alignment without acute frac ture, dislocation or unexpected opaque foreign body. Anterior material is noted with expected postope rative soft tissue swelling and deep tissue air. IMPRESSION: Left knee total joint arthroplasty with expected postoperative changes. ACT 112: Negative or not required by law. The above report was generated using voice recognition software. It may contain grammatical, syntax o r spelling errors. Electronically signed by: Byron Redd M.D. 09/27/2021 9:52 AM
--- NOTE | 2021-09-27 10:04 | Anesthesiology Progress Note ---
Date of Service September 27, 2021 Anesthesia Post Procedure Vital Signs Vital Signs: Temp Pulse Resp BP Pulse Ox 09/27/21 10:00 97.5 F L 60 18 137/74 94 09/27/21 09:50 65 12 133/71 99 09/27/21 09:40 60 12 150/70 H 100 09/27/21 09:30 66 14 132/77 100 09/27/21 09:22 97.3 F L 67 16 133/79 98 09/27/21 06:26 98.2 F 69 18 165/82 H 98 Pain Intensity Back: Pain Intensity: 4 Transfer of Care Handoff Completed per policy Notes Mental Status: alert / awake / arousable and participated in evaluation Patient Amnestic to Procedure: Yes Nausea / Vomiting: adequately controlled Pain: adequately controlled Airway Patency, RR, SpO2: stable & adequate BP & HR: stable & adequate Hydration State: stable & adequate Neuraxial Anesthesia: was administered and sensory block is resolving Anesthetic Complications: no major complications apparent and Pt Satisfied with anesthetic care
[2021-09-27] MEDS ORDERED: KETOROLAC 30 MG/ML VIAL ONE (12:24)
[2021-09-27] MEDS: SODIUM CHLORIDE 0.9% 1000ML 1,000 ML IV SCH (15:00)
[2021-09-27] MEDS ORDERED: TRANEXAMIC ACID / 0.7% NACL 1,000 MG/100 ML BAG IV SCH (15:30)
--- NOTE | 2021-09-27 15:58 | Orthopedic Progress Note ---
Date of Service September 27, 2021 Assessment & Plan (1) Status post total left knee replacement: Plan: PT/OT Pain control with p.o. medication Ice with easy wrap DVT prophylaxis with aspirin and KOBI stockings Weightbearing as tolerated on left lower extremity with walker assistance and knee immobilizer for the first 48 hours postop Keep dressing in place.We will remove outer dressing tomorrow morning but will keep Silverlon in place. Plan on discharge home tomorrow afternoon with in-home physical therapy. Admission and Anticipated Discharge Date Admission Date: September 27, 2021 Subjective This 76-year-old female is seen a few hours following a left total knee arthroplasty. Patient states she is doing very well. She states that her pain is well controlled with the p.o. pain medication she was given. She states that overall she feels fantastic. She denies chest pain, shortness of breath, fever, chills, sweats, lethargy, nausea, vomiting, diarrhea and states that she has urinated twice since being brought to the floor. Review of Systems Review of Systems: All systems reviewed & are unremarkable except as noted in Subjective Physical Exam Physical Exam: Left knee: Knee immobilizer and dressings were kept in place on the patient's left lower extremity. She is able to perform an active straight leg raise test and actively dorsi and plantarflex her foot without issue or difficulty. She states she has some achy pain over her quadricep and advised her this is most likely due to the tourniquet there was in place. Patient is able to depict light sensation to touch over the pads of her digits. She is neurovascularly intact in left lower extremity. Results & Data ([facility]) Vital Signs (Past 12 Hours) Vital Signs Temp Pulse Pulse Resp BP Pulse Ox 09/27/21 14:30 36.8 C 80 16 130/76 96 09/27/21 14:15 87 12 126/73 94 09/27/21 13:30 83 16 131/84 93 09/27/21 13:00 70 19 132/84 96 09/27/21 12:30 72 18 133/65 97 09/27/21 11:50 71 16 134/76 96 09/27/21 11:20 36.6 C 64 12 143/77 H 98 09/27/21 11:05 61 18 141/73 H 94 09/27/21 10:50 60 12 132/76 97 09/27/21 10:40 36.4 C L 65 20 136/78 96 09/27/21 10:30 65 20 144/90 H 94 09/27/21 10:20 61 12 147/77 H 95 09/27/21 10:10 62 12 132/76 97 09/27/21 10:00 36.4 C L 60 18 137/74 94 09/27/21 09:50 65 12 133/71 99 09/27/21 09:40 60 12 150/70 H 100 09/27/21 09:30 66 14 132/77 100 09/27/21 09:22 36.3 C L 67 16 133/79 98 09/27/21 06:26 36.8 C 69 18 165/82 H 98 Diagnostic Findings Laboratory Results COVID-19 Eval Order Covid19 [facility]Now [facility] 09/27/21 06:01 SARS-CoV-2, RNA, NAAT NEGATIVE (NEGATIVE) 09/27/21 06:01 Blood Type O Positive 09/27/21 05:37 Antibody Screen NEGATIVE 09/27/21 05:37 Impressions Knee X-Ray 09/27/21 09:27 XR knee LT 1 or 2V routine HISTORY: 76 years-old Female Surgical Post Op left knee total joint ar throplasty COMPARISON: 08/31/2021 TECHNIQUE: 2 views of the left knee FINDINGS: Left knee total joint arthroplasty and patella resurfacing. Satisfactory alignment without acute fracture, dislocation or unexpected opaque foreign body. Anterior material is noted with expected postoperative soft tissue swelling and deep tissue air. IMPRESSION: Left knee total joint arthroplasty with expected postoperative changes. ACT 112: Negative or not required by law. The above report was generated using voice recognition software. It may contain grammatical, syntax or spelling errors. Electronically signed by: Byron Redd M.D. 09/27/2021 9:52 AM
[2021-09-27] MEDS: ACETAMINOPHEN 500 MG TAB PO SCH ×2 (16:18→21:59)
[2021-09-27] MEDS: KETOROLAC TROMETHAMINE 15 MG/ML VIAL IV SCH ×2 (16:19→22:00)
[2021-09-27] MEDS: Scopolamine CHECK PATCH PLACEMENT SCH (16:28)
[2021-09-27] MEDS: CLINDAMYCIN 600 MG in DEXTROSE 5% 50 ML IV SCH ×2 (17:59→23:28)
[2021-09-27] MEDS ORDERED: OLMESARTAN MEDOXOMIL 5 MG TAB PO SCH (21:00)
[2021-09-27] MEDS ORDERED: NIFEdipine EXTENDED REL 30 MG TABCR PO SCH (21:00)
[2021-09-27] MEDS ORDERED: METOPROLOL SUCC 50MG EXT REL TAB PO SCH (21:00)
[2021-09-27] MEDS ORDERED: ACETAMINOPHEN HOME PACK 500 MG TABLET PO SCH (21:00)
[2021-09-27] MEDS ORDERED: SENNA 8.6 MG TAB PO SCH (21:00)
[2021-09-27] MEDS ORDERED: PANTOprazole 40 MG TAB PO SCH (21:00)
[2021-09-27] MEDS ORDERED: MELATONIN 3 MG TAB PO SCH (22:00)
[2021-09-27] MEDS: DOCUSATE SODIUM 100 MG CAP PO SCH (22:00)
[2021-09-27] MEDS: POTASSIUM CHLORIDE 10 MEQ TABCR PO SCH (22:01)
[2021-09-27] MEDS: MEMANTINE HCL 10 MG TAB PO SCH (22:01)
[2021-09-28] MEDS: Scopolamine CHECK PATCH PLACEMENT SCH ×2 (00:07→08:01)
[2021-09-28] MEDS: SODIUM CHLORIDE 0.9% 1000ML 1,000 ML IV SCH (00:08)
[2021-09-28] MEDS: KETOROLAC TROMETHAMINE 15 MG/ML VIAL IV SCH ×2 (01:36→08:03)
[2021-09-28] MEDS: ACETAMINOPHEN 500 MG TAB PO SCH (05:27)
[2021-09-28 06:19] LABS: Hematocrit (blood only) 30.3 % (37-47); Hemoglobin 10.3 g/dL (12.0-16.0); Mean Corpuscular Hemoglobin 31.7 pg (25-34); Mean Corpuscular Volume 93.2 fL (80-100); Mean Platelet Volume 9.3 fL (7.4-10.4); Platelet Count 191 K/uL (130-400); RDW Coefficient of Variation 12.9 % (11.5-14.5); RDW Standard Deviation 44.3 fL (36.4-46.3); Red Blood Count 3.25 M/uL (4.2-5.4); White Blood Count 10.44 K/uL (4.8-10.8)
[2021-09-28 07:09] LABS: BUN Creatinine Ratio 17.4 (10-20); Calcium 8.4 mg/dl (8.5-10.1); Creatinine Clr Calc Pharmacy 45.4 ml/min; Est GFR (African American) 62.5 ml/min; Est GFR (Non-African American) 53.9 ml/min; Potassium 3.7 mmol/L (3.5-5.1)
[2021-09-28] MEDS ORDERED: dexAMETHasone 4 MG TAB PO SCH (08:00)
[2021-09-28] MEDS: MEMANTINE HCL 10 MG TAB PO SCH (08:06)
[2021-09-28] MEDS: DOCUSATE SODIUM 100 MG CAP PO SCH (08:06)
[2021-09-28] MEDS: POTASSIUM CHLORIDE 10 MEQ TABCR PO SCH (08:06)
--- NOTE | 2021-09-28 08:19 | Orthopedic Progress Note ---
Date of Service September 28, 2021 Assessment & Plan (1) Status post total left knee replacement: Plan: PT/OT Pain control with p.o. medication Ice with easy wrap DVT prophylaxis with aspirin and KOBI stockings Weightbearing as tolerated on left lower extremity with walker assistance and knee immobilizer for the first 48 hours postop Keep dressing in place.We will remove outer dressing prior to discharge but will keep Silverlon in place. Plan on discharge home today with in-home physical therapy. Admission and Anticipated Discharge Date Admission Date: September 27, 2021 Subjective POD 1 following a left total knee arthroplasty. Patient states she did well overnight. She states that her pain is well controlled. She denies chest pain, shortness of breath, fever, chills, sweats, lethargy, nausea, vomiting, diarrhea. Physical Exam Physical Exam: L knee: Knee immobilizer in place. dressing c/d/i. Distally NVI. Results & Data ([facility]) Vital Signs (Past 12 Hours) Vital Signs Temp Pulse Pulse Resp BP Pulse Ox 09/28/21 07:22 36.7 C 58 L 16 119/65 91 09/28/21 04:00 36.7 C 73 18 108/65 92 09/27/21 23:25 36.4 C L 68 20 164/82 H 96
[2021-09-28] MEDS ORDERED: ASPIRIN 81 MG ECTAB PO SCH (09:00)
[2021-09-28] MEDS ORDERED: CYANOCOBALAMIN 500 MCG TABLET (VITAMIN B-12) PO SCH (09:00)
[2021-09-28] MEDS ORDERED: METOPROLOL SUCC 50MG EXT REL TAB PO SCH (09:00)
[2021-09-28] MEDS ORDERED: CHLORTHALIDONE 25 MG TAB PO SCH (09:00)
[2021-09-28] MEDS ORDERED: CHOLECALCIFEROL 1,000 UNITS 25 MCG TAB PO SCH (09:00)
[2021-09-28] MEDS ORDERED: MULTIVITAMIN TAB PO SCH (09:00)
[2021-09-28] MEDS ORDERED: NON-FORMULARY MEDICATION (Aspirin 81 mg tablet) PO SCH (09:00)
--- NOTE | 2021-09-28 09:43 | Orthopedic Progress Note ---
Date of Service September 28, 2021 Assessment & Plan (1) Status post total left knee replacement: Plan: PT/OT Pain control with p.o. medication Ice with easy wrap DVT prophylaxis with aspirin and KOBI stockings Weightbearing as tolerated on left lower extremity with walker assistance and knee immobilizer for the first 48 hours postop Keep Silverlon dressing in place. Plan on discharge home today with in-home physical therapy. Follow-up at [facility] as your were previously scheduled in 2 weeks. With questions contact the clinic at [phone] Admission and Anticipated Discharge Date Admission Date: September 27, 2021 Subjective This 76-year-old female is Day 1 status post left total knee arthroplasty. Patient states she did well overnight. She states that her pain is well controlled. She denies chest pain, shortness of breath, fever, chills, sweats, lethargy, nausea, vomiting, diarrhea. She states she was up on her walker few times last night to use the restroom with difficulty. Review of Systems Review of Systems: All systems reviewed & are unremarkable except as noted in Subjective Physical Exam Physical Exam: Left knee: Knee immobilizer and dressings were Moved from the patient's left lower extremity this morning. Silverlon dressing was kept in place. It was clean dry and intact. She is able to perform an active straight leg raise test and actively dorsi and plantarflex her foot without issue or difficulty. Active knee flexion to 70 degrees. Patient is able to depict light sensation to touch over the pads of her digits. She is neurovascularly intact in left lower extremity. Results & Data ([facility]) Vital Signs (Past 12 Hours) Vital Signs Temp Pulse Pulse Resp BP Pulse Ox 09/28/21 07:22 36.7 C 58 L 16 119/65 91 09/28/21 04:00 36.7 C 73 18 108/65 92 09/27/21 23:25 36.4 C L 68 20 164/82 H 96 Laboratory Results 09/28/21 09/28/21 09/27/21 Range/Units 05:25 05:25 17:30 WBC 10.44 (4.8-10.8) K/uL RBC 3.25 L (4.2-5.4) M/uL Hgb 10.3 L (12.0-16.0) g/dL Hct 30.3 L (37-47) % MCV 93.2 (80-100) fL MCH 31.7 (25-34) pg MCHC 34.0 (32-36) g/dL RDW Std Deviation 44.3 (36.4-46.3) fL RDW Coeff of Shannan 12.9 (11.5-14.5) % Plt Count 191 (130-400) K/uL MPV 9.3 (7.4-10.4) fL Sodium 135 L (136-145) mmol/L Potassium 3.7 (3.5-5.1) mmol/L Chloride 104 (98-107) mmol/L Carbon Dioxide 24 (21-32) mmol/L Anion Gap 7.0 (3-11) BUN 17 (7-18) mg/dl Creatinine 1.00 (0.6-1.2) mg/dl Est Cr Clr Drug Dosing 45.4 ml/min Est GFR ( Amer) 62.5 ml/min Est GFR (Non-Af Amer) 53.9 ml/min BUN/Creatinine Ratio 17.4 (10-20) Glucose 112 H (70-99) mg/dl POC Glucose 116 H (70-99) mg/dl Calcium 8.4 L (8.5-10.1) mg/dl
--- NOTE | 2021-09-28 09:53 | Discharge Summary ---
Date of Service September 28, 2021 Admission HPI Per Admitting Provider History of Present Illness (including history relevant to procedure): This 76-year-old female presents the clinic today for preoperative history and physical. Patient was initially scheduled for total knee replacement on September 06 however her surgery has been rescheduled due to the high census of Covid patients requiring hospitalization. She has seen Dr. Patel in the past and actually was on the surgery schedule to have her knee replaced with him, but has been counseled twice due to lack of inpatient beds at our hospital from the coronavirus pandemic. She has been trying to get this rescheduled and can get on my schedule faster than she could with Dr. Patel, which is why she is here today. Patient reports she was actually told that she could get her knee replaced 15 years ago when she had the right knee replacement done. It has been really bothering her the last 2 years. She is having trouble getting in and out of cars, putting any weight down on it. She does have a history of a spine surgery with some residual left lower leg numbness and loss of her Achilles reflex. However, denies any numbness on the dorsum of her foot. Review Of Systems: A 12 point review systems performed is unremarkable except for those things stated in the HPI and past medical history. Past Medical History: Problems: Xerosis cutis Changing skin lesion Sun-damaged skin Family history of melanoma History of actinic keratoses Medication management Hypertension History of left hip replacement Lesion of pancreas Actinic keratoses Liver cyst Schatzki's ring Dysphagia Pancreas cyst RUQ pain Left knee DJD Hypokalemia Osteopenia Milia Seborrheic keratoses Abdominal cramping, bilateral lower quadrant Dilated bile duct SHAR positive Polyarthralgia Microscopic colitis Adenomatous colon polyp Diarrhea Weakness Lower extremity weakness History of lumbar fusion Weight disorder Multiple pigmented nevi Inflamed seborrheic keratosis Chronic hypokalemia Prophylactic administration of vaccine against other diseases Schatzki's ring ANXIETY LICHEN PLANUS ACTINIC KERATOSIS Urinary tract infection, recurrent Greater trochanteric bursitis Dysplastic nevus HTN (hypertension) Visit for preventive health examination Family history of skin cancer Procedure History Procedure Procedure Date Comments left ONDINA right TKA gallbladder hysterectomy back fusion with repair bilateral knee arthroscopies Hernia repair Mohs surgery 07/02/2021 Shave biopsy and cauterization of skin 06/12/2021 Cataract 11/28/2020 - R cararact replacement Eye examination 11/07/2020 - Bilateral Cataracts. Would like to proceed with cararact surgery. Right eye will be first on November 28, 2020. Left eye likely to follow a couple of weeks later. Upper GI endoscopy 11/06/2020 - Regular Z-line 35 cm from incisors. Moderate Schatzki's ring which was dilated. Normal examined duodenum. No specimens collected. - gastric polypsmedium sized haiatal hernia MRCP - Magnetic resonance cholangiopancreatography 07/09/2019 - Report reviewed. Additional findings body of report. common hepatic duct 9 mm no change vs 06/2018, ,, CBD smooth tapering no change, Stable 6 mm pancreas lesion, mod HH, mild PD dilatation 4 mm no change. - 1) Overall, no signifcant change compared to the prior study. 2) Hepatic cysts are again noted. Dominant right hepatic lobe cyst measures 13 x 11 x 10 cm.3) No change in the biliary ductal dilatation which is likely related to the patient's postcholecystectomy state. 4) Pancreas divisum. Mammogram 06/10/2019 - No mammographic evidence of malignancy, 1 year screening recommended. MRCP - Magnetic resonance cholangiopancreatography 06/29/2018 - 1) Increase in size of a dominant right hepatic lobe cyst which now measures 14.6 x 10.9 x 10.4 cm. Trace perihepatic fluid. 2) No change in biliary ductal dilitation since MRCP in 11/28/16. This is likely related to previous cholecystectomy. No choledocholitihiasis. 3) Pancreas divisum. No change in mild pancreatic ductal dilatation. 4) Moderate sized hiatal hernia. Ultrasound finding 05/26/2018 - RUQ u/s several hepatic cysts largest 12.7 cm, CBD 13 mm no change from MRCP 11/2016 and u/s 09/2016, s/p mauricio, DEXA - Dual energy X-ray photon absorptiometry 08/28/2017 MRCP - Magnetic resonance cholangiopancreatography 11/28/2016 - Normal caliber common bile duct measuring 5mmDistended common hepatic duct and cystic duct status post cholecytectomy. There is also mild to moderate intrahepatic bile duct dilatation, left greater than right. There are no filling defects within the common bile duct or common hepatic duct. Therefore, these may represent postoperative changes.Pancreas divisum. The main pancreatic duct is mildly distended up to 4mmA 5mm cyst at the pancreatic tail. 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 Ultrasound 10/14/2016 - 1) Prior cholecytectomy. Distended common bile duct measuring upt to 1.3 cm 2) Multiple hepatic cysts. Colonoscopy 09/10/2016 - COLO to TI, 7 mm polyp at 90 cm removed tubular adenoma, TI normal and ranom path mild inflammation, random right and left colon path moderate inflammation, congestion at 30 cm moderate inflammation - moderate inflammation; appt with Dr Garland 10/03/16. repeat colon in 5 years - await path Colonoscopy abnormal 09/10/2016 - repeat in 5 years Evaluation of test results 08/28/2016 - Giardia negative Ultrasound, retroperitoneal (eg, renal, aorta, nodes), real time with image documentation; complete 06/04/2016 - 7mm upper pole right renal cyst. Otherwise negative renal ultrasound Spine X-ray 05/07/2016 - 1. There is no acute bony abnormality identified involving the lumbosacral spine.2. Osteopenia with lubosacral spondylosis and scoliosis as above. Mammogram 04/18/2015 DEXA - Dual energy X-ray photon absorptiometry 09/15/2014 Esophagogastroduodenoscopy 09/09/2012 - EGD gastric polyps, HH, mild schatzki's ring dilated; Shave biopsy of skin 01/31/2012 Allergies and Sensitivities: lisinopril(cough) codeine(Vomiting) PCN (penicillin)(hives) PCN (penicillin)(rash) Social history: Patient states she consumes 1 alcoholic beverage per day. She denies tobacco or illicit drug use Family history:Heart attack: Unknown High Blood Pressure: Mother, Unknown Lung cancer..: Father Skin cancer: Unknown Stroke: Mother, Unknown Current Home Meds: (Last Updated 09/03 15:28) NIFEdipine (NIFEdipine 90 mg oral tablet, extended release) TAKE 1 TABLET BY MOUTH ONCE DAILY acetaminophen (Tylenol) aspirin (aspirin 81 mg oral tablet) 81 mg PO Daily chlorthalidone (chlorthalidone 25 mg oral tablet) 25 mg PO Daily cholecalciferol (Vitamin D3 1000 intl units oral tablet) 1,000 Int_Unit PO Daily cyanocobalamin (Vitamin B12 500 mcg oral tablet) 500 mcg PO Daily melatonin (melatonin 5 mg sublingual tablet) 10 mg SL qhs meloxicam (meloxicam 7.5 mg oral tablet) TAKE 1 TO 2 TABLETS BY MOUTH ONCE DAILY NEEDED memantine (memantine 10 mg oral tablet) 10 mg PO bid metoprolol (Metoprolol Succinate ER 100 mg oral tablet, extended release) TAKE 1 & 1/2 (ONE & ONE-HALF) TABLETS BY MOUTH ONCE DAILY olmesartan (Benicar 5 mg oral tablet) 5 mg PO Daily omeprazole (omeprazole 40 mg oral delayed release capsule) Take 1 capsule by mouth once daily potassium chloride (Potassium Chloride (Eqv-K-Tab) 10 mEq oral tablet, extended release) Take 1 tablet by mouth twice daily unlisted medication (Stool Softener) 200 mg No Vital Signs Data Available Initial Wt: No Data Available Studies (relevant to the procedure): X-rays: standing long-leg alignment film done today demonstrates patient to be in pathologic valgus alignment with the weightbearing axis passing lateral to the lateral tibial plateau. She has end- stage osteoarthritis, [id number] in the lateral compartment. Admission Exam Per Admitting Provider Physical Exam: (relevant to the procedure, including heart and lung evaluation) General: Alert and oriented x3 with proper grooming and hygiene Eyes: Pupils are equal and reactive to light with accommodation. Extraocular movements are intact Throat: Deferred due to COVID-19 precautions Cardiac: Regular rate and rhythm with no murmurs or gallops appreciated Lungs: Clear to auscultation throughout with no wheezing, rales or rhonchi Abdomen: Mildly obese, nondistended, nontender with NABS Extremities: Left knee; range of motion is from 10 degrees of extension to 120 degrees of flexion. Patient has a visible valgus malalignment. There is crepitation with passive range of motion. Her patella is not mobile due to arthritic change within the patellofemoral joint. She has no varus or valgus laxity. Negative AP drawer sign Lyla test. She is neurovascularly intact in left lower extremity. Neuro: Cranial nerves II through XII are intact no motor or sensory deficit Skin: Normal in appearance no open skin areas or discharge Principal Diagnosis Left knee osteoarthritis Discharge Exam Left knee: Knee immobilizer and dressings were removed from the patient's left lower extremity this morning. Silverlon dressing was kept in place. It was clean dry and intact. She is able to perform an active straight leg raise test and actively dorsi and plantarflex her foot without issue or difficulty. Active knee flexion to 70 degrees. Patient is able to depict light sensation to touch over the pads of her digits. She is neurovascularly intact in left lower extremity. Discharge Data Allergies Allergy/AdvReac Type Severity Reaction Status Date / Time Penicillins Allergy Intermediate Hives Verified 09/27/21 06:17 lisinopril AdvReac Intermediate Cough Verified 09/27/21 06:17 codeine AdvReac Mild Gastrointestinal Verified 09/27/21 06:17 Upset Procedures Performed Operation Date: 09/27/21 07:00 Actual Procedures p Left Total Knee Arthroplasty(Left) - Grey Be MD Ordered Studies 08/01/21 05:00 US - OR guided needle placemen Routine 08/14/21 05:00 US - OR guided needle placemen Routine 09/27/21 05:00 US - OR guided needle placemen Routine Hospital Course (1) Status post total left knee replacement: Patient did very well overnight. Her pain was effectively controlled with p.o. pain medication. She is very pleased with the results of her surgery. She will be discharged home later today with in-home physical therapy for the first 2 weeks postoperatively. PT/OT Pain control with p.o. medication Ice with easy wrap DVT prophylaxis with aspirin and KOBI stockings Weightbearing as tolerated on left lower extremity with walker assistance and knee immobilizer for the first 48 hours postop Keep Silverlon dressing in place. Plan on discharge home today with in-home physical therapy. Follow-up at [facility] [address] orthopedics as your were previously scheduled in 2 weeks. With questions contact the clinic at [phone] Total Time Total Time Spent Total Time Spent (In Minutes): 20 minutes Discharge Plan Discharge Items Patient Disposition: Home - Home Health Services Reason For Visit: Osteoarthritis, Left Knee Discharge Diagnosis: Left knee osteoarthritis Activity: As commented below Lifting: None Bathing: Keep incision dry Bathing Comment: May shower tomorrow Sexual Activity: Wait until after follow-up appointment Exercise/Sports: Wait until after follow-up appointment Driving/Machine Use: No driving until cleared by disability benefits specialist Weightbearing Comment: as tolerated with walker assistance and immobilizer for first 48 hrs Non-emergency contact: Surgeon Call non-emergency contact if: you have any medication questions, your pain is not controlled, your temperature is above 101.5, your wound has increased drainage and your wound pain has increased Follow-up/Referrals: Gabrielle Guerrero DO [Primary Care Provider] - Diet: Regular Addtl Attending Provider Instructions: Post-operative Instructions Dear Patient and Family/Friends, Before you are discharged from the hospital, it is important to know what to expect when you get home after surgery. To that end, we have created this sheet of discharge instructions which covers many commonly asked questions. Make sure you go through this sheet in its entirety with your nurse before you are discharged. Please note that we will go over the specifics of your surgery and recovery when you return for your first post-operative visit. Sincerely, Dr. Be Medications 1. Aspirin 81 mg: increase your daily aspirin intake to tabs per day for the first 30 days post operatively for blood clot prevention. 2. Oxycodone 5 mg: take 1-2 tabs by mouth every 4-6 hours as needed for pain. A prescription for 30 tabs will be sent to your pharmacy. 3. Meloxicam 7.5 mg: please resume your daily meloxicam intake. 4. Extra Strength Tylenol 500 mg: take 2 tabs po every 6 hrs as needed for additional pain relief. Please purchase. 5. Zofran 4 mg tablet: Take 1 tablet every 6-8 hours as needed for relief of nausea. A prescription for this medication will be sent to your pharmacy Pain Expect to be in a fair amount of pain after surgery. Remember, our goal is not to eliminate your pain, but to make it tolerable. It is a good idea to stay ahead of your pain by taking the medications you were prescribed once you get home. Typically, the pain starts improving 3-7 days after surgery. You should start weaning off the narcotic pain medication (oxycodone, hydrocodone, hydromorphone, morphine) as soon as your pain improves. Please call our office if your pain is not adequately controlled. Ice Ice your operative site at least 5 times a day for 15-30 minutes at a time. Make sure you have a thin cloth between the ice or cooling unit and your skin to prevent vergara bite. This is especially important if you received a nerve block. Continue icing your operative site for the first 5-7 days after surgery, then as needed. Diet/Nausea/Vomiting Start by drinking clear liquids and eating crackers. If you can tolerate this, then you may resume your normal diet. If you feel nauseated or vomit, take Zofran/ondansetron (if prescribed). Please call our office if you have intractable nausea or vomiting, or, if after hours, you may go to the Emergency Room for help. Constipation Constipation is a common side effect of narcotic pain medication. If you have not had a bowel movement within 2 days after surgery, we recommend purchasing an over the counter laxative such as Milk of Magnesia, Dulcolax, or Miralax from a local pharmacy, and taking it as instructed. Call our clinic if any questions. Slings and Braces If you were placed in a sling or brace, it must be worn at all times, including sleep. You may remove your sling or brace for physical therapy, home exercises, and showering. The length of time you will be in your brace and range of motion restrictions depends on what surgery you had; these details will be reviewed at your first post-operative appointment. Nerve block The anesthesia team sometimes places a nerve block to help with post-operative pain control. This results in significant numbness and inability to move the extremity. The nerve block usually wears off in 8-12 hours, but sometimes can last up to 24 hours. Please call our office if you are still unable to move your extremity after 24 hours, unless you received a pain pump to take home. Nerve blocks typically wear off quickly, so start taking pain medication as soon as you start feeling soreness near your surgical site. Weight bearing and Range of Motion. Do not bear any weight through your operative extremity immediately after surgery. If you had upper extremity surgery, do not lift anything with that arm. If you are in a knee brace, keep it locked in place until your follow-up. We will discuss your weight bearing, range of motion, and lifting restrictions in detail at your first post-operative appointment. Continuous Passive Motion (CPM) Machine If you were prescribed a CPM machine, it will start after your first post- operative appointment, at which time we will give you instructions on the range of motion settings and duration of treatment Physical therapy You will be given a prescription for physical therapy or occupational therapy at your first post-operative appointment. Typically, patients start therapy within 1 week of surgery Wound care and showering We will inspect your wound at your first post-operative visit, and may do a dressing change at that time. Most patients will be in a water-proof dressing that is removed 14 days after surgery. It is normal to see some dried blood on the dressing. Do not remove your dressing, paper strips or sutures yourself unless you are given permission. Showering is allowed the day after surgery. Do not scrub or remove any dressings. The wound should not be submerged underwater (i.e. in a bathtub or pool) until 4 weeks after surgery KOBI stockings If you were given white stockings, these are to be worn at all times except to shower (on both legs) for the first 2 weeks after surgery. Driving You may not drive while taking narcotic pain medication or while in a cast, splint, sling or brace. You, the patient, need to make the final determination about when you are safe to drive, however, the earliest you may consider driving after surgery is below: Hand/Wrist/Elbow Surgery: 3 days Shoulder Surgery: 2 weeks Hip,/Knee/Ankle Surgery: 4 weeks Fracture repair: 6 weeks Return to Work Your return to work depends on what surgery was done and what type of work you do. Please bring any paperwork your employer needs completed to your first post-operative visit. Also, bring a description of your job duties, as this helps us to understand what risks you may face at work. Travel Avoid long distance travel (greater than 1 hour) in airplanes and cars for the first 6 weeks after surgery. If you must travel, you need to have a Doppler ultrasound done before you travel to rule out a blood clot in your legs. Follow-up You should have a follow-up appointment already scheduled 1-2 days after surgery. If not, please contact our office to make this appointment before you leave the hospital. When to call the office It is normal to have swelling and bruising in the limb that was operated on. This will improve with time. It is also normal to have fevers for the first 2 days after surgery. Reasons you should call your doctor include: Uncontrolled pain; Nausea, vomiting, or constipation that does not improve with medication; Fevers over 101.5, chills, sweats; Drainage or bleeding from the wound; Foul odor; Spreading areas of redness; Any other concerns Pending Studies at Discharge: No Stand-Alone Forms: My [facility] Medications and DC Order Prescriptions: New aspirin 81 mg Tablet,Delayed Release (Dr/Ec) 81 mg PO BID Qty: 60 RF: 0 oxycodone 5 mg tablet 5 mg PO Q4H MDD Max doses 2 tablets every 4 hr Qty: 30 RF: 0 ondansetron HCl [Zofran] 4 mg tablet 4 mg PO Q8H Qty: 14 RF: 0 Continued melatonin 10 mg tablet,ext release multiphase 10 mg PO HS RF: 0 cholecalciferol (vitamin D3) 25 mcg (1,000 unit) tablet 1,000 unit PO QAM RF: 0 aspirin 81 mg tablet 81 mg PO HS RF: 0 cyanocobalamin (vitamin B-12) 500 mcg tablet 500 mcg PO QAM RF: 0 omeprazole 40 mg capsule,delayed release(DR/EC) 40 mg PO HS RF: 0 potassium chloride 10 mEq tablet extended release 10 meq PO BID RF: 0 metoprolol succinate 100 mg tablet extended release 24 hr 100 mg PO HS RF: 0 metoprolol succinate 50 mg tablet extended release 24 hr 50 mg PO QAM RF: 0 nifedipine 90 mg tablet extended release 90 mg PO HS RF: 0 chlorthalidone 25 mg tablet 25 mg PO QAM RF: 0 docusate sodium [Stool Softener] 100 mg tablet 200 mg PO HS RF: 0 memantine 10 mg tablet 10 mg PO BID Qty: 180 RF: 3 meloxicam 7.5 mg Tablet 7.5 mg PO DAILY PRN (Reason: Pain) RF: 0 acetaminophen 500 mg Tablet 1,000 mg PO HS RF: 0 olmesartan 5 mg Tablet 5 mg PO HS RF: 0 Discharge Orders: Discharge Order (Routine); Ordered 09/28/21 Ordered By: Kingsley Gallagher Admission Data Admit Date/Time: 09/27/21 09:24 Attending Provider: Grey Be Admit Provider: Grey Be Primary Care Provider: Gabrielle Guerrero
== END 2021-09-28 14:01 | disposition home health service (06) ==
LOC: ASU 05:25 → PACUINP 05:25 → 3E 14:46